=== PATIENT | female | born 1930 | race Caucasian/White ===

== ENCOUNTER 2021-06-28 13:21 | Inpatient (IN) ==
[2021-06-28] MEDS ORDERED: Ondansetron 4 MG/2 ML VIAL IVP PRN (17:17)
[2021-06-28] MEDS ORDERED: Naloxone 0.4 MG/ML INJ IVP PRN (17:17)
[2021-06-28] MEDS ORDERED: Perflutren Lipid Microsphere 1.3 ML in 0.9 % Sodium Chloride 8.7 ML IVP PRN (17:50)
[2021-06-28] MEDS: hydrALAZINE 25 MG TABLET PO SCH ×2 (17:59→20:42)
[2021-06-28] MEDS: *HR* Heparin 5,000 UNIT/ML VIAL SQ SCH (18:01)
[2021-06-28] MEDS: Fluticasone Propionate Nasal 50 MCG/SPRAY BOTTLE NS SCH (20:43)
[2021-06-29 02:26] LABS: Basophils % 0.6 %; Eosinophils # 0.1 K/mcL (0.0-0.6); Eosinophils % 2.4 %; Hematocrit 36.5 % (35.3-44.9); Hemoglobin 12.1 g/dL (11.5-15.4); Immature Granulocytes % 0.4 % (0-4); Lymphocytes # 1.6 K/mcL (0.6-4.6); Lymphocytes % 29.5 %; Mean Corpuscular HGB Conc 33.2 g/dL (31.6-35.5); Mean Corpuscular Hemoglobin 29.7 pg (28.0-33.3); Mean Corpuscular Volume 89.5 fL (83.0-100.0); Mean Platelet Volume 10.4 fL (9.4-12.4); Monocytes # 0.5 K/mcL (0.0-1.3); Monocytes % 9.8 %; Neutrophils # 3.1 K/mcL (1.6-8.9); Platelet Count 257 K/mcL (140-400); Red Blood Count 4.08 M/mcL (3.82-4.97); Red Cell Distribution Width 13.7 % (11.5-14.5); Segmented Neutrophils % 57.3 %; White Blood Count 5.4 K/mcL (4.3-11.1)
[2021-06-29 02:40] LABS: BUN/Creatinine Ratio 16 (6-26); Blood Urea Nitrogen 17 mg/dL (8-23); Calcium 9.4 mg/dL (8.6-10.3); Carbon Dioxide 28 mEq/L (23-29); Chloride 101 mEq/L (98-107); Glucose 96 mg/dL (70-105); Magnesium 1.7 mg/dL (1.6-2.6); Osmolality,Calculated 283 (280-300); Sodium 136 mEq/L (136-145); eGFR For African Americans > 60 (> 60); eGFR For Non-African Americans 50 (> 60)
[2021-06-29 02:54] LABS: Thyroid Stimulating Hormone 0.581 mcIU/mL (0.340-5.600)
[2021-06-29] MEDS: *HR* Heparin 5,000 UNIT/ML VIAL SQ SCH ×3 (05:16→18:08)
[2021-06-29] MEDS: amLODIPine 5 MG TABLET PO SCH (08:16)
[2021-06-29] MEDS: hydrALAZINE 25 MG TABLET PO SCH ×3 (08:16→19:58)
[2021-06-29] MEDS: Aspirin 81 MG TAB.CHEW PO SCH (08:16)
[2021-06-29] MEDS: *HR* HYDROcodone/Acet 5/325 mg TABLET PO PRN ×2 (09:05→18:17)
[2021-06-29] MEDS ORDERED: *HR* LORazepam 0.5 MG TABLET PO PRN (10:16)
[2021-06-29] MEDS: Isosorbide MONOnitrate (24 HR) 60 MG TAB.ER.24H PO SCH ×2 (13:59→19:58)
[2021-06-29] MEDS: Fluticasone Propionate Nasal 50 MCG/SPRAY BOTTLE NS SCH (21:11)
[2021-06-30] MEDS: *HR* Heparin 5,000 UNIT/ML VIAL SQ SCH ×2 (05:51→18:07)
[2021-06-30] MEDS: hydrALAZINE 25 MG TABLET PO SCH ×3 (08:34→20:54)
[2021-06-30] MEDS: Aspirin 81 MG TAB.CHEW PO SCH (08:34)
[2021-06-30] MEDS: Cholecalciferol (D-3) 1,000 UNIT (25MCG) TABLET PO SCH (08:34)
[2021-06-30] MEDS: amLODIPine 5 MG TABLET PO SCH (08:35)
[2021-06-30] MEDS ORDERED: Regadenoson 0.4 MG/5 ML SYRINGE IVP ONE (10:56)
[2021-06-30] MEDS: Regadenoson 0.4 MG/5 ML SYRINGE IVP ONE (11:26)
[2021-06-30] MEDS: NIFEdipine Immed Rel 10 MG CAPSULE PO SCH ×2 (14:15→20:54)
[2021-06-30] MEDS: Fluticasone Propionate Nasal 50 MCG/SPRAY BOTTLE NS SCH (20:54)
[2021-06-30] MEDS ORDERED: *HR* LORazepam 2 MG/ML VIAL IVP ONE (22:56)
[2021-07-01] MEDS: *HR* Heparin 5,000 UNIT/ML VIAL SQ SCH ×2 (05:17→18:15)
[2021-07-01] MEDS ORDERED: Regadenoson 0.4 MG/5 ML SYRINGE IVP ONE (06:15)
[2021-07-01] MEDS ORDERED: *HR* LORazepam 2 MG/ML VIAL IVP ONE (06:30)
[2021-07-01 06:45] LABS: BUN/Creatinine Ratio 21 (6-26); Blood Urea Nitrogen 21 mg/dL (8-23); Carbon Dioxide 28 mEq/L (23-29); Chloride 98 mEq/L (98-107); Glucose 110 mg/dL (70-105); Osmolality,Calculated 284 (280-300); Potassium 3.7 mEq/L (3.5-5.1); Sodium 135 mEq/L (136-145); eGFR For African Americans > 60 (> 60); eGFR For Non-African Americans 52 (> 60)
[2021-07-01] MEDS: NIFEdipine Immed Rel 10 MG CAPSULE PO SCH ×3 (08:44→23:01)
[2021-07-01] MEDS: Cholecalciferol (D-3) 1,000 UNIT (25MCG) TABLET PO SCH (08:44)
[2021-07-01] MEDS: Aspirin 81 MG TAB.CHEW PO SCH (08:44)
[2021-07-01] MEDS: Isosorbide MONOnitrate (24 HR) 60 MG TAB.ER.24H PO SCH ×3 (08:45→23:01)
[2021-07-01] MEDS: hydrALAZINE 25 MG TABLET PO SCH ×3 (08:45→23:01)
[2021-07-01] MEDS: Regadenoson 0.4 MG/5 ML SYRINGE IVP ONE (09:14)
[2021-07-01] MEDS: *HR* HYDROcodone/Acet 5/325 mg TABLET PO PRN (13:37)
[2021-07-01] MEDS: Fluticasone Propionate Nasal 50 MCG/SPRAY BOTTLE NS SCH (23:02)
[2021-07-02] MEDS: *HR* Heparin 5,000 UNIT/ML VIAL SQ SCH ×2 (05:55→16:47)
[2021-07-02] MEDS ORDERED: *HR* LORazepam 0.5 MG TABLET PO ONE (06:14)
[2021-07-02] MEDS: Aspirin 81 MG TAB.CHEW PO SCH (08:13)
[2021-07-02] MEDS: hydrALAZINE 25 MG TABLET PO SCH ×3 (08:13→20:24)
[2021-07-02] MEDS: Isosorbide MONOnitrate (24 HR) 60 MG TAB.ER.24H PO SCH ×3 (08:13→20:24)
[2021-07-02] MEDS: Cholecalciferol (D-3) 1,000 UNIT (25MCG) TABLET PO SCH (08:13)
[2021-07-02] MEDS: NIFEdipine Immed Rel 10 MG CAPSULE PO SCH (08:16)
[2021-07-02] MEDS: NIFEdipine XL (24 HR) 60 MG TAB.ER.24 PO SCH (16:47)
[2021-07-02] MEDS: Fluticasone Propionate Nasal 50 MCG/SPRAY BOTTLE NS SCH (20:23)
[2021-07-02] MEDS: *HR* LORazepam 0.5 MG TABLET PO PRN (20:32)
[2021-07-03] MEDS: *HR* HYDROcodone/Acet 5/325 mg TABLET PO PRN (03:15)
[2021-07-03] MEDS: *HR* Heparin 5,000 UNIT/ML VIAL SQ SCH (04:42)
[2021-07-03] MEDS: Aspirin 81 MG TAB.CHEW PO SCH (07:45)
[2021-07-03] MEDS: NIFEdipine XL (24 HR) 60 MG TAB.ER.24 PO SCH (07:45)
[2021-07-03] MEDS: Isosorbide MONOnitrate (24 HR) 60 MG TAB.ER.24H PO SCH (07:45)
[2021-07-03] MEDS: Cholecalciferol (D-3) 1,000 UNIT (25MCG) TABLET PO SCH (07:45)
[2021-07-03] MEDS: *HR* LORazepam 0.5 MG TABLET PO PRN (08:03)
[2021-07-03] MEDS: hydrALAZINE 25 MG TABLET PO SCH (09:27)
[2021-07-03 12:00] VITALS: BP 164/74; PULSE 103; TEMP 97.4; O2SAT 96
== END 2021-07-03 13:23 | disposition home or self-care (01) | DRG 305 ==
LOC: 2ANU → SUATTDRO 16:57
PROVIDERS: ADMIT Pharmacist; ATTEND Internal Medicine